=== PATIENT | female | born 1950 | race Caucasian/White ===

== ENCOUNTER 2023-06-23 06:05 | Observation (INO) | payer OTHER ==
[2023-06-18 09:54] LABS: Absolute Eosinophils 0.1 K/uL (0-0.5); Absolute Lymphocytes (CBC) 1.8 K/uL (0.7-4.9); Absolute Monocytes 0.6 K/uL (0.1-1.3); Absolute Neutrophil 5.7 K/uL (1.8-8.0); Basophils % 0.4 % (0-1.3); Eosinophils % 1.7 % (0-4.4); Hematocrit 41.1 % (36.0-45.0); Hemoglobin 13.7 g/dL (12.0-15.0); Lymphocytes % 21.7 % (15.3-44.8); MCH 32.6 pg (27.0-35.0); MCHC 33.4 g/dL (32.0-36.0); MCV 97.7 fL (80-100); MPV 7.1 fL (7.6-11.3); Monocytes % 6.9 % (3.3-12.3); Neutrophils % 69.3 % (41.7-73.7); Platelets 316 thou/uL (152-406); Red Cell Distribution Width 13.5 % (12.1-15.2)
[2023-06-18 10:00] LABS: PT Prothrombin Time 9.9 SECONDS (9.5-12.5); PTT, Activated Partial Thromb 32.1 SECONDS (24.3-36.9); Protime INR 0.9
--- NOTE | 2023-06-18 10:41 | RAD REPORT ---
EXAM DESCRIPTION: Cari Deleon And Amada (2 Views)06/18/2023 10:10 am CLINICAL HISTORY: Rad for left knee surgery. Hypertension COMPARISON: None FINDINGS: The lungs appear clear of acute infiltrate. The heart is normal size IMPRESSION: No acute abnormalities displayed
[2023-06-18 10:46] LABS: Anion Gap 5.9 mEq/L (5.0-15.0); Potassium 3.9 mEq/L (3.5-5.1)
--- NOTE | 2023-06-18 11:56 | EKG ---
Test Date: 2023-06-18 Test Time: 09:43:02 Sales And Marketing Agent: BERONICA MEASUREMENT RESULTS: Intervals: Rate: 66 ID: [id number] QRSD: 88 QT: 420 QTc: 440 [place]: P: 61 ID: [id number] QRS: 63 T: 73 INTERPRETIVE STATEMENTS: Normal sinus rhythm Normal ECG No previous ECG available for comparison Electronically Signed On 06-18-23 11:54:04 CDT by Aditya Orta
[2023-06-23] MEDS: CEFAZOLIN SODIUM 2 GM/VIAL ONE (06:21)
[2023-06-23] MEDS: Oxycodone HCl/Acetaminophen 5/325 MG TAB ONE (06:35)
[2023-06-23] MEDS: GABAPENTIN 100 MG CAP ONE (06:35)
[2023-06-23] MEDS: CELECOXIB 100 MG CAPSULE ONE (06:35)
[2023-06-23] MEDS: ACETAMINOPHEN 500 MG TAB ONE (06:35)
[2023-06-23] MEDS: Ringers Lactate 1,000 ML IV ONE ×2 (06:40→09:45)
[2023-06-23] MEDS: dexAMETHasone 10 MG/ML VIAL ONE (07:04)
[2023-06-23] MEDS: EPINEPHRINE 1 MG/ML VIAL ONE (07:05)
[2023-06-23] MEDS: FENTANYL CITR 100 MCG/2 ML ONE (07:05)
[2023-06-23] MEDS: DEXMEDETOMIDINE HCL 200 MCG/2 ML VIAL ONE (07:05)
[2023-06-23] MEDS: MIDAZOLAM HCL 2 MG/2 ML INJ ONE (07:05)
[2023-06-23] MEDS: MAGNESIUM SULFATE 1 gm IVPB 1 GM/100 ML BAG IV ONE (07:06)
[2023-06-23] MEDS: BUPIVACAINE 0.25% PF 30 ML VIAL ONE (07:06)
[2023-06-23] MEDS: TRANEXAMIC ACID 1,000 MG/10 ML VIAL IV ONE (07:08)
[2023-06-23] MEDS: NA CHLORIDE 0.9% 250 ML ONE (07:18)
[2023-06-23] MEDS: ALBUMIN HUM 5% 500 ML IV ONE (08:14)
[2023-06-23] MEDS: VANCOMYCIN 1 GM/VIAL ONE (08:16)
[2023-06-23] MEDS ORDERED: LIDOCAINE 2% MPF 5 ML VIAL ONE ×3 (08:26→08:38)
[2023-06-23] MEDS ORDERED: propofoL 200 MG/20 ML VIAL IV ONE (08:26)
[2023-06-23] MEDS ORDERED: Phenylephrine HCl 10 MG/ML 1 ML VIAL ONE (08:27)
[2023-06-23] MEDS ORDERED: NS 0.9% VIAL 10 ML ONE (08:27)
[2023-06-23] MEDS ORDERED: KETAMINE HCL IN 0.9 % NACL 50 MG/5 ML SYRINGE IV ONE (08:38)
[2023-06-23] MEDS ORDERED: ROCURONIUM 50 MG/5 ML VIAL IV ONE (08:54)
[2023-06-23] MEDS ORDERED: EPHEDRINE SULF 50 MG/ML VIAL ONE (09:04)
[2023-06-23] MEDS ORDERED: KETOROLAC 30 MG/ML INJ ONE (11:02)
[2023-06-23] MEDS ORDERED: dexAMETHasone 10 MG/ML VIAL ONE (11:02)
[2023-06-23] MEDS ORDERED: ONDANSETRON 4 MG/2 ML VIAL ONE (11:02)
--- NOTE | 2023-06-23 11:03 | P.BOP ---
Preoperative diagnosis: left knee osteoarthritis Postoperative diagnosis: same Primary procedure: left total knee arthroplasty Ticket Worker: NONE,NONE Estimated blood loss: 50 cc Specimen: left knee bone remnants Findings: see dictation Anesthesia: General Complications: None Implants: [employer] Persona 6 CR femur, D tibia w/ stem, 29 patella, 11 CR poly Fluids & blood products: per anesthesia record; TT: 86 mins @ 300 mmHg Transferred to: Recovery Room Condition: Good
[2023-06-23] MEDS ORDERED: DOCUSATE NA 100 MG CAP PO PRN (11:05)
[2023-06-23] MEDS ORDERED: ONDANSETRON 4 MG/2 ML VIAL IV PRN (11:05)
[2023-06-23] MEDS ORDERED: ACETAMINOPHEN 325 MG TABLET PO PRN (11:05)
--- NOTE | 2023-06-23 11:41 | RAD REPORT ---
EXAM DESCRIPTION: RAD - Knee Left 2 View - 06/23/2023 11:27 am CLINICAL HISTORY: Post Op Pain and swelling COMPARISON: No comparisons FINDINGS: Left total knee arthroplasty is noted. Skin nia are present anteriorly along the midli ne small amount of gas is present in the joint space. No unexpected immediate postoperative finding.
[2023-06-23 12:06] LABS: Hematocrit 34.4 % (36.0-45.0); Hemoglobin 11.5 g/dL (12.0-15.0)
[2023-06-23 13:32] VITALS: BMI 31.9
[2023-06-23] MEDS ORDERED: INFLUENZA VACCINE (for 6+ mo) 0.5 ML DOSE IMVAC ONE (15:00)
[2023-06-23] MEDS: TRAMADOL HCL 50 MG TAB PO PRN (17:06)
[2023-06-23] MEDS: FLUTICASONE 50MCG NASAL SPRAY NAS SCH (20:41)
[2023-06-23] MEDS: VANCOMYCIN 1 GM in NA CHLORIDE 0.9% 250 ML IVPB SCH (20:42)
[2023-06-23] MEDS: TRAZODONE 150 MG TAB PO SCH (20:43)
[2023-06-23] MEDS: METOPROLOL XL 50 MG TAB PO SCH (20:43)
[2023-06-23] MEDS ORDERED: [UNRECOGNIZED DRUG - REMARK] NS SCH (21:00)
[2023-06-24] MEDS: FENTANYL CITR 100 MCG/2 ML IV ONE (03:12)
[2023-06-24 05:11] LABS: Hematocrit 31.6 % (36.0-45.0); Hemoglobin 10.9 g/dL (12.0-15.0)
[2023-06-24] MEDS: ENOXAPARIN 30 MG/0.3 ML SQ SCH (05:43)
[2023-06-24] MEDS: LEVOTHYROXINE SOD 0.112 MG TAB PO SCH (05:43)
[2023-06-24] MEDS: LEVOTHYROXINE SOD 0.025 MG TAB PO SCH (05:43)
[2023-06-24] MEDS: VALSARTAN 160 MG TAB PO SCH (08:55)
[2023-06-24] MEDS: CELECOXIB 100 MG CAPSULE PO SCH (08:56)
[2023-06-24] MEDS: CHLORTHALIDONE 25 MG TAB PO SCH (08:56)
[2023-06-24] MEDS: FLUOXETINE 20 MG CAP PO SCH (08:57)
[2023-06-24] MEDS: AMLODIPINE 5 MG TAB PO SCH (08:57)
[2023-06-24] MEDS: MULTIVITAMIN TAB PO SCH (08:57)
[2023-06-24] MEDS: HOME MED (Fluticasone/Umeclidin/Vilanter [Trelegy Ellipta 100-62.5-25] Blst.W.Dev IH SCH (08:58)
[2023-06-24] MEDS: ESTRADIOL 0.5 MG PO SCH (08:59)
[2023-06-24] MEDS: [UNRECOGNIZED DRUG - REMARK] PO SCH (08:59)
[2023-06-24] MEDS ORDERED: HOME MED 1 EA UNK (Fluoxetine Hcl [Prozac] 40 MG Capsule) PO SCH (09:00)
[2023-06-24] MEDS ORDERED: HOME MED 1 EA UNK (Olmesartan Medoxomil [Benicar] 20 MG Tablet) PO SCH (09:00)
[2023-06-24] MEDS ORDERED: HOME MED 1 EA UNK (Multivitamin [Multivitamin] Tablet) PO SCH (09:00)
[2023-06-24] MEDS ORDERED: HOME MED 1 EA UNK (Levothyroxine Sodium [Levothyroxine Sodium] 137 MCG Tablet) PO SCH (09:00)
[2023-06-24] MEDS: VANCOMYCIN 1 GM in NA CHLORIDE 0.9% 250 ML IVPB SCH (09:00)
[2023-06-24] MEDS: HYDROCODONE/APAP 7.5/325 MG TAB PO PRN (09:16)
--- NOTE | 2023-06-24 10:58 | P.DS ---
Admission Date: 06/23/23 Discharge Date: 06/24/23 Disposition: DC HOME/HOME HEALTH CARE Discharge Condition: GOOD Reason for Admission: s/p L TKA Consultations: None Procedures: Left TKA 06/23/2023 Brief History of Present Illness: Yari is a 73-year-old female that underwent left total knee arthroplasty on June 23, 2023 and was admitted to floor in stable condition. Hospital Course: Patient was admitted to the floor in stable condition. Physical therapy was consulted to aid with mobilization. Patient was mobilizing safely and was discharged in stable condition on June 24, 2023. Patient will continue with home health physical therapy. She was discharged with Xarelto for DVT prophylaxis. Vital Signs/Physical Exam: Temp Pulse Resp BP Pulse Ox 99.2 F 66 18 121/56 L 92 06/24/23 08:00 06/24/23 08:57 06/24/23 09:16 06/24/23 08:57 06/24/23 09:16 Laboratory Data at Discharge: WBC 8.20 thou/uL (4.3-10.9) 06/18/23 09:35 Hgb 10.9 g/dL (12.0-15.0) L 06/24/23 04:00 Hct 31.6 % (36.0-45.0) L 06/24/23 04:00 Plt Count 316 thou/uL (152-406) 06/18/23 09:35 PT 9.9 SECONDS (9.5-12.5) 06/18/23 09:35 INR 0.90 06/18/23 09:35 APTT 32.1 SECONDS (24.3-36.9) 06/18/23 09:35 Sodium 135 mEq/L (136-145) L 06/18/23 09:35 Potassium 3.9 mEq/L (3.5-5.1) 06/18/23 09:35 BUN 17 mg/dL (7-18) 06/18/23 09:35 Creatinine 0.82 mg/dL (0.55-1.02) 06/18/23 09:35 Glucose 120 mg/dL (74-106) H 06/18/23 09:35 Home Medications: Acetaminophen [Pain Relief] 1,000 mg PO PRN PRN 06/18/23 Amlodipine [Norvasc*] 5 mg PO DAILY 06/18/23 Chlorthalidone [Hygroton 25mg Tab*] 25 mg PO DAILY 06/18/23 Clarithromycin 500 mg PO BID 06/18/23 Estradiol [Estrace] 0.5 mg PO DAILY 06/18/23 Fexofenadine HCl [Mary Allergy] 60 mg PO DAILY 06/18/23 Fluoxetine HCl [Prozac] 40 mg PO DAILY 06/18/23 Fluticasone Propionate [24 Hour Allergy Relief] 2 spray NS BID 06/18/23 Fluticasone/Umeclidin/Vilanter [Trelegy Ellipta 100-62.5-25] 1 each IH DAILY 06/18/23 Levothyroxine Sodium 137 mcg PO DAILY 06/18/23 Metoprolol Succinate [Toprol Xl*] 50 mg PO BEDTIME 06/18/23 Multivitamin 1 each PO DAILY 06/18/23 Olmesartan Medoxomil [Benicar] 40 mg PO DAILY 06/18/23 Trazodone [Desyrel*] 150 mg PO BEDTIME 06/18/23 Vitamin B Complex [B Complex] 1 each PO DAILY 06/18/23 Hydrocodone 7.5/APAP 325 [[facility] 7.5/325 mg*] 1 tab PO Q4H PRN tab 06/24/23 Physician Discharge Instructions: Keep dressing clean, dry and intact. Use bilateral thigh-high ONESIMO hose for 2 weeks to aid with swelling. Begin , tomorrow, June 24 with breakfast and take once daily until prescription completed. Follow-up with Dr. Mortensen in 2 weeks for staple removal. Diet: Regular Activity: Weight bearing as tolerated Followup: Suman Mortensen MD [Primary Care Provider] - 1-2 Weeks
[2023-06-24 11:24] VITALS: O2SAT 92
[2023-06-24 12:39] VITALS: BP 111/52; TEMP 97.1
== END 2023-06-24 12:39 | disposition home health service (06) ==
LOC: OR 06:05 → 4TH 11:05
PROVIDERS: ADMIT Orthopaedic Surgery Sports Medicine; ATTEND Orthopaedic Surgery Sports Medicine
PROC: 0SRD069 Replacement of Left Knee Joint with Oxidized Zirconium on Polyethylene Synthetic Substitute, Cemented, Open Approach (ICD-10-PCS; principal; 2023-06-23 08:00)
DX: M17.12 Unilateral primary osteoarthritis, left knee (principal); Z88.5 Allergy status to narcotic agent
CPT/HCPCS: 36415; 71046; 80048; 85014; 85018; 85025; 85610; 85730; 88305; 88311; 93005; 94010; 97110; 97116; 97139; 97161; 97530; A4216; C1776; G0378; G0379; J0171; J1100; J1650; J2001; J2250; J2371; J2405; J2704; J3010; J3475; J7050; J7120; P9045